=== PATIENT | female | born 1945 | race Caucasian/White ===

== ENCOUNTER 2017-10-26 15:09 | Inpatient (IN) | payer MEDICARE ==
[2017-10-26] MEDS ORDERED: Ondansetron HCl/PF 4 MG/2 ML Vial SLOW IVP PRN (15:32)
[2017-10-26] MEDS ORDERED: Bisacodyl 5 MG TAB PO PRN (15:32)
[2017-10-26] MEDS ORDERED: Acetaminophen 325 MG TAB PO PRN (15:32)
[2017-10-26 16:12] LABS: #Basophils 0.1 thou/uL (0.0-0.2); #Eosinphils 0.1 thou/uL (0.0-0.7); #Lymphocytes 1.7 thou/uL (1.20-3.40); #Monocytes 0.9 thou/uL (0.11-0.59); #Neutrophils 7.2 thou/uL (1.40-6.50); %Basophils 0.9 % (0.0-1.0); %Eosinophils 0.6 % (0.0-10.0); %Lymphocytes 17.2 % (21.0-51.0); %Monocytes 8.9 % (0.0-10.0); %Neutrophils 72.4 % (42.0-75.0); Hemoglobin 16.6 g/dL (12.0-16.0); Mean Corpuscular HGB CONC 34.1 g/dL (32.0-36.0); Mean Corpuscular Volume 91.1 fL (78.0-98.0); Mean Platelet Volume 8.7 fL (7.4-10.4); Platelet Count 352 thou/uL (130-400); RBC Distribution Width 13.6 % (11.5-14.5); Red Blood Cell (RBC) Count 5.34 mill/uL (4.20-5.40); White Blood Cell (WBC) Count 9.9 thou/uL (4.8-10.8)
[2017-10-26 16:18] LABS: ALT (SGPT) 38 U/L (8-55); AST (SGOT) 31 U/L (5-34); Alkaline Phosphatase 107 U/L (40-150); Anion Gap 16 mmol/L (10-20); BUN (Urea Nitrogen) 17 mg/dL (9.8-20.1); Bilirubin, Total 1.8 mg/dL (0.2-1.2); Calc. Creatinine Clearance 0 mL/min (70-130); Calcium 11.6 mg/dL (7.8-10.44); Carbon Dioxide 24 mmol/L (23-31); Chloride 102 mmol/L (98-107); Estimated GFR-MDRD 38; Globulin 3.8 g/dL (2.4-3.5); Glucose 114 mg/dL (83-110); Potassium 3.5 mmol/L (3.5-5.1); Protein, Total 7.8 g/dL (6.0-8.3); Sodium 138 mmol/L (136-145)
[2017-10-26 16:53] VITALS: BMI 35.5
[2017-10-26] MEDS: Rivaroxaban 10 MG TAB PO SCH (19:55)
--- NOTE | 2017-10-27 07:42 | PDOC.CTH ---
Cardiology Progress Note - Subjective Resting comfortably - Objective Vital Signs Temp Pulse Resp BP Pulse Ox 10/27/17 04:00 97.8 F 78 18 142/79 H 93 L 10/27/17 00:00 100 18 177/78 H 10/26/17 20:00 98.1 F 88 18 161/91 H 95 Weight 210 lb 10/26/17 10/27/17 10/28/17 06:59 06:59 06:59 Intake Total 480 Output Total 400 Balance 80 - Physical Examination General/Neuro: alert & oriented x3, NAD Neck: carotid US brisk, no JVD present Lungs: unlabored respirations Heart: other: (IRR) Abdomen: no HSM, NT/ND, soft Extremities: + femoral B - Telemetry Telemetry Rhythm: afib - Labs Result Diagrams: 10/26/17 15:45 10/26/17 15:45 - Assessment/Plan afib with RVR Pt with previous chronic afib strategy is to rate control given she has been in afib for over 2 yrs add po CCB decrease IV ccb at noon today
[2017-10-27] MEDS: Potassium Chloride 20 MEQ TAB PO SCH ×2 (08:03→16:42)
[2017-10-27] MEDS: cloNIDine 0.1 MG TAB PO SCH (08:03)
[2017-10-27] MEDS: Digoxin 0.125 MG TAB PO SCH (08:03)
[2017-10-27] MEDS: Senokot S 8.6-50 MG TAB PO SCH (08:04)
[2017-10-27] MEDS: Multivit, Therapeutic 1 TAB PO SCH (08:04)
[2017-10-27] MEDS: Furosemide 40 MG TAB PO SCH (08:04)
[2017-10-27] MEDS: Meloxicam 7.5 MG TAB PO SCH (08:04)
[2017-10-27] MEDS: Thyroid 30 MG TAB PO SCH (08:11)
[2017-10-27] MEDS ORDERED: Diltiazem HCl 125 MG, Admixture Fee 1 EACH in Sodium Chloride 0.9% 100 ML IVPB SCH (12:00)
[2017-10-27] MEDS: Rivaroxaban 10 MG TAB PO SCH (20:49)
[2017-10-28] MEDS: Digoxin 0.125 MG TAB PO SCH (08:06)
[2017-10-28] MEDS: cloNIDine 0.1 MG TAB PO SCH (08:06)
[2017-10-28] MEDS: Furosemide 40 MG TAB PO SCH (08:06)
[2017-10-28] MEDS: Potassium Chloride 20 MEQ TAB PO SCH ×2 (08:06→16:44)
[2017-10-28] MEDS: Multivit, Therapeutic 1 TAB PO SCH (08:07)
[2017-10-28] MEDS: Senokot S 8.6-50 MG TAB PO SCH (08:07)
[2017-10-28] MEDS: Meloxicam 7.5 MG TAB PO SCH (08:07)
[2017-10-28] MEDS: Thyroid 30 MG TAB PO SCH (08:07)
[2017-10-28] MEDS: Rivaroxaban 10 MG TAB PO SCH (20:58)
[2017-10-29 06:03] LABS: Digoxin 0.79 ng/mL (0.8-2.0)
[2017-10-29 06:08] LABS: Anion Gap 14 mmol/L (10-20); BUN (Urea Nitrogen) 18 mg/dL (9.8-20.1); Calc. Creatinine Clearance 86 mL/min (70-130); Calcium 9.9 mg/dL (7.8-10.44); Carbon Dioxide 27 mmol/L (23-31); Chloride 102 mmol/L (98-107); Estimated GFR-MDRD 65; Glucose 93 mg/dL (83-110); Potassium 3.9 mmol/L (3.5-5.1); Sodium 139 mmol/L (136-145)
[2017-10-29 07:44] VITALS: BP 142/88; TEMP 98.8
[2017-10-29] MEDS: Potassium Chloride 20 MEQ TAB PO SCH (07:44)
[2017-10-29] MEDS: Furosemide 40 MG TAB PO SCH (07:44)
[2017-10-29] MEDS: Digoxin 0.125 MG TAB PO SCH (07:44)
[2017-10-29] MEDS: Multivit, Therapeutic 1 TAB PO SCH (07:45)
[2017-10-29] MEDS: Senokot S 8.6-50 MG TAB PO SCH (07:45)
[2017-10-29] MEDS: Thyroid 30 MG TAB PO SCH (07:45)
[2017-10-29] MEDS: cloNIDine 0.1 MG TAB PO SCH (07:45)
--- NOTE | 2017-10-29 14:24 | DIS ---
DATE OF ADMISSION: 10/26/2017 DATE OF DISCHARGE: 10/29/2017 DISCHARGE DIAGNOSIS: Atrial fibrillation. HOSPITAL COURSE: Ms. Durand was admitted from the outpatient clinic due to atrial fibrillation with RVR. There were attempts to control her rate she was placed on IV Cardizem. She was placed on low dose beta al therapy with increase in her calcium channel blockade. On day of discharge, o n 10/29/2017, her rate was felt to be controlled. DISCHARGE MEDICATIONS: Lasix 40 daily, digoxin 0.25 q.a.m., Molino Thyroid as prescribed, Xarelto 20 daily, multivitamin, Cardizem 240 daily, diltiazem 360 daily, and metoprolol 25 mg daily.
== END 2017-10-29 10:53 | disposition home or self-care (01) | DRG 310 ==
LOC: 2NO 15:09
PROVIDERS: ADMIT Internal Medicine Cardiovascular Disease; ATTEND Internal Medicine Cardiovascular Disease
DX: I48.2 Chronic atrial fibrillation (principal); I10 Essential (primary) hypertension; E78.5 Hyperlipidemia, unspecified; Z88.5 Allergy status to narcotic agent; Z88.0 Allergy status to penicillin; Z79.899 Other long term (current) drug therapy
CPT/HCPCS: 36415; 80048; 80053; 80162; 84443; 85025; A4216; J7050

== ENCOUNTER 2018-01-27 06:52 | Outpatient (CLI) | payer MEDICARE ==
--- NOTE | 2018-01-27 08:32 | ULT ---
RIGHT UPPER QUADRANT GALLBLADDER ULTRASOUND: HISTORY: Abdominal pain and weight loss. COMPARISON: None. TECHNIQUE: Utilizing a multihertz transducer, sonographic imaging of the right upper quadrant is performed in th e longitudinal and transverse plane. FINDINGS: Pancreas is obscured by bowel gas. Gallbladder is surgically absent. Main portable vein is patent. Appropriate directional flow. Hepatic parenchyma has a normal echotexture. No hepatic masses or intrahepatic biliary dilatation. The contour of the hepatic margin is maintained. Right hepatic lobe measures 14.10 cm. Common bile duct diameter is 0.7 cm. The right kidney has a normal cortical echotexture. No hydronephrosis. The right kidney measures 9. 3 x 5.5 x 5.4 cm. There is an anechoic focus in the right renal cortex, mid pole measuring approxima tely 1 cm. Small cyst is favored. On the transverse images, the cyst appears to be exophytic. IMPRESSION: Unremarkable right upper quadrant ultrasound. POS: [facility]
== END 2018-01-27 06:53 | disposition home or self-care (01) ==
LOC: SCSULT 06:52
PROVIDERS: ATTEND Family Medicine
DX: R10.9 Unspecified abdominal pain (principal)
CPT/HCPCS: 76705

== ENCOUNTER 2018-03-17 09:43 | Outpatient (CLI) | payer MEDICARE ==
[~2018-03-17 09:43] MED LIST: Gadobenate Dimeglumine 529 MG/1 ML (20ML VIAL) ONE
--- NOTE | 2018-03-17 12:14 | MRI ---
MRI BRAIN WITH AND WITHOUT CONTRAST: HISTORY: 72-year-old female with G25.2 coarse tremors. TECHNIQUE: Multiple sequences obtained in axial, sagittal, and coronal planes; pre and post IV injection of gado linium-based contrast agent: 17 mL MultiHance. FINDINGS: The ventricles are normal in size and configuration. There is no restricted diffusion, abnormal intr aaxial enhancement, mass, midline shift or any other mass effect, recent intraaxial hemorrhage, or ex traaxial fluid collection. There is a mild-moderate degree of T2-hyperintensities in the periventricu lar cerebral white matter consistent with chronic ischemic white matter changes due to microvascular atherosclerosis. IMPRESSION: 1. Mild-moderate chronic ischemic white matter changes. 2. Otherwise negative. jn[] POS: MR
== END 2018-03-17 09:44 | disposition home or self-care (01) ==
LOC: SCSMRI 09:43
PROVIDERS: ATTEND Family Medicine
DX: G25.2 Other specified forms of tremor (principal); G93.89 Other specified disorders of brain
CPT/HCPCS: 70553; 82565

== ENCOUNTER 2018-05-14 08:58 | Emergency (ER) | payer MEDICARE ==
[2018-05-14 09:26] LABS: #Basophils 0.1 thou/uL (0.0-0.2); #Lymphocytes 3.1 thou/uL (1.20-3.40); #Monocytes 0.7 thou/uL (0.11-0.59); #Neutrophils 6.7 thou/uL (1.40-6.50); %Eosinophils 0.5 % (0.0-10.0); %Lymphocytes 28.8 % (21.0-51.0); %Monocytes 6.3 % (0.0-10.0); %Neutrophils 63.5 % (42.0-75.0); Hemoglobin 13.3 g/dL (12.0-16.0); Mean Corpuscular HGB CONC 33.7 g/dL (32.0-36.0); Mean Corpuscular Hemoglobin 30.3 pg (27.0-31.0); Mean Corpuscular Volume 89.9 fL (78.0-98.0); Mean Platelet Volume 7.7 fL (7.4-10.4); Platelet Count 271 thou/uL (130-400); Red Blood Cell (RBC) Count 4.37 mill/uL (4.20-5.40); White Blood Cell (WBC) Count 10.6 thou/uL (4.8-10.8)
[2018-05-14] MEDS ORDERED: Diltiazem 125 MG/25 ML ONE (09:34)
[2018-05-14 09:42] LABS: ALT (SGPT) 15 U/L (8-55); AST (SGOT) 19 U/L (5-34); Alkaline Phosphatase 81 U/L (40-150); Anion Gap 18 mmol/L (10-20); BUN (Urea Nitrogen) 36 mg/dL (9.8-20.1); Bilirubin, Total 1.2 mg/dL (0.2-1.2); Calc. Creatinine Clearance 0 mL/min (70-130); Calcium 10.9 mg/dL (7.8-10.44); Carbon Dioxide 23 mmol/L (23-31); Chloride 107 mmol/L (98-107); Estimated GFR-MDRD 70; Globulin 2.9 g/dL (2.4-3.5); Glucose 105 mg/dL (83-110); Potassium 3.6 mmol/L (3.5-5.1); Protein, Total 6.9 g/dL (6.0-8.3); Sodium 144 mmol/L (136-145)
[2018-05-14 10:17] LABS: Bilirubin Negative (Negative); Blood, Urine Negative (Negative); Clarity Clear (Clear); Glucose, Urine (Dipstick) Negative (Negative); Leukocyte Negative (Negative); Nitrite Negative (Negative); Protein, Urine (Dipstick) Negative (Neg-Trace); Specific Gravity, Urine 1.015 (1.005-1.030); Urobilinogen 0.2 mg/dL (0.2-1.0)
[2018-05-14] MEDS ORDERED: Aspirin Chewable 81 MG TAB ONE (10:17)
--- NOTE | 2018-05-14 10:48 | RAD ---
PORTABLE CHEST: DATE: 05/14/2018. PROVIDED CLINICAL HISTORY: Shortness of breath. FINDINGS: Cardiac silhouette appears enlarged, which may be at least partially on the basis of portable techniq ue. No focal consolidation, pleural fluid, or pneumothorax apparent. IMPRESSION: No evidence for an acute cardiopulmonary process. POS: [facility]
[2018-05-14 12:56] LABS: Troponin I 0.027 ng/mL (< 0.028)
== END 2018-05-14 13:21 | disposition home or self-care (01) ==
LOC: SCSER 08:58
DX: I48.91 Unspecified atrial fibrillation (principal); I10 Essential (primary) hypertension; Z79.899 Other long term (current) drug therapy
CPT/HCPCS: 71045; 80053; 80162; 81003; 83605; 83880; 84443; 84484; 85025; 93005; 94760; 96361; 96374

== ENCOUNTER 2018-08-08 12:51 | Observation (INO) | payer MEDICARE ==
[2018-08-08] MEDS ORDERED: Aspirin Chewable 81 MG TAB ONE (13:16)
[2018-08-08 13:32] LABS: #Basophils 0.1 thou/uL (0.0-0.2); #Eosinphils 0.1 thou/uL (0.0-0.7); #Lymphocytes 2.6 thou/uL (1.20-3.40); #Neutrophils 6.7 thou/uL (1.40-6.50); %Basophils 1.1 % (0.0-1.0); %Eosinophils 1.4 % (0.0-10.0); %Lymphocytes 24.5 % (21.0-51.0); %Monocytes 9.5 % (0.0-10.0); %Neutrophils 63.6 % (42.0-75.0); Hemoglobin 16.1 g/dL (12.0-16.0); Mean Corpuscular HGB CONC 33.4 g/dL (32.0-36.0); Mean Corpuscular Hemoglobin 29.4 pg (27.0-31.0); Mean Corpuscular Volume 88.1 fL (78.0-98.0); Mean Platelet Volume 8.4 fL (7.4-10.4); Platelet Count 340 thou/uL (130-400); RBC Distribution Width 13.1 % (11.5-14.5); Red Blood Cell (RBC) Count 5.49 mill/uL (4.20-5.40); White Blood Cell (WBC) Count 10.6 thou/uL (4.8-10.8)
[2018-08-08 13:45] LABS: ALT (SGPT) 18 U/L (8-55); AST (SGOT) 25 U/L (5-34); Albumin 4.2 g/dL (3.4-4.8); Alkaline Phosphatase 108 U/L (40-150); Anion Gap 21 mmol/L (10-20); BUN (Urea Nitrogen) 19 mg/dL (9.8-20.1); Bilirubin, Total 2.1 mg/dL (0.2-1.2); Calc. Creatinine Clearance 0 mL/min (70-130); Calcium 10.8 mg/dL (7.8-10.44); Carbon Dioxide 20 mmol/L (23-31); Chloride 101 mmol/L (98-107); Digoxin 0.26 ng/mL (0.8-2.0); Estimated GFR-MDRD 50; Globulin 3.9 g/dL (2.4-3.5); Glucose 97 mg/dL (83-110); Potassium 3.1 mmol/L (3.5-5.1); Protein, Total 8.1 g/dL (6.0-8.3); Sodium 139 mmol/L (136-145)
--- NOTE | 2018-08-08 13:47 | RAD ---
PORTABLE CHEST: HISTORY: Shortness of breath. Atrial fibrillation. FINDINGS: Lung cortez are clear. No evidence of vascular congestion. Heart size is upper normal and stable fr om prior exam. No effusion. IMPRESSION: No acute process. POS: [facility]
[2018-08-08] MEDS ORDERED: Diltiazem HCl 125 MG, Admixture Fee 1 EACH in Sodium Chloride 0.9% 100 ML IVPB SCH (14:00)
[2018-08-08 14:08] LABS: CKMB 1.1 ng/mL (0-6.6)
[2018-08-08 16:06] VITALS: BMI 28.8
[2018-08-08] MEDS ORDERED: Sodium Chloride 0.9% 1,000 ML IV SCH (16:30)
[2018-08-08 17:03] LABS: Troponin I 0.033 ng/mL (< 0.028)
[2018-08-08] MEDS ORDERED: Bisacodyl 5 MG TAB PO PRN (17:59)
[2018-08-08] MEDS ORDERED: Benzonatate 100 MG CAP PO PRN (17:59)
[2018-08-08] MEDS ORDERED: Acetaminophen 325 MG TAB PO PRN (17:59)
[2018-08-08] MEDS ORDERED: Nitroglycerin 0.4 MG TAB (25 Tab Bottle) SL PRN (17:59)
[2018-08-08] MEDS ORDERED: cloNIDine 0.1 MG TAB PO PRN (17:59)
[2018-08-08] MEDS ORDERED: hydrALAZINE 20 MG/ML VIAL SLOW IVP PRN (17:59)
[2018-08-08] MEDS ORDERED: Ondansetron PF 4 MG/2 ML Vial IVP PRN ×2 (17:59)
[2018-08-08] MEDS ORDERED: Senokot S 8.6-50 MG TAB PO PRN (17:59)
[2018-08-08] MEDS ORDERED: Calcium Carbonate 500 MG ChewTAB PO PRN (17:59)
[2018-08-08] MEDS ORDERED: Enoxaparin Sodium 80 MG/0.8 ML SYRINGE SC SCH (18:00)
[2018-08-08] MEDS ORDERED: Diltiazem 125 MG in Sodium Chloride 0.9% 100 ML IVPB SCH (18:00)
[2018-08-08] MEDS ORDERED: Potassium Chloride 20 MEQ TAB PO SCH (18:45)
--- NOTE | 2018-08-08 19:25 | HP ---
PRIMARY CARE PHYSICIAN: Dr. Gomez. PRIMARY BRIEFCASE SEWER: Dr. Lewis. CHIEF COMPLAINT: Shortness of breath and dizziness. HISTORY OF PRESENTING ILLNESS: Ms. Durand is a very pleasant 72-year-old female with past medical history of chronic atrial fibrillation, on chronic anticoagulation as well as history of hypertension and dyslipidemia, who presented to the emergency room with above-mentioned complaint. History is mainly obtained by the patient herself and supplemented by her son present at the bedside. Ms. Durand underwent a cataract surgery and she has been off her Xarelto for the last 2-1/2 weeks. For the last about 5 to 10 days, she has been experiencing dizziness, which has been getting worse. She had a cold, for which she was on [id number] cold medications, but when she started to get dizzy: She stopped taking those, but persistently stayed dizzy. The dizziness worsened to the point where she has fallen up to 5 to 6 times in the last 2 weeks. She is also experiencing the sensation that she is leaning toward her left side. She denies any fever, headache, nausea, vomiting, or abdominal pain. She denies any chest pain or chest discomfort. Since yesterday, she also started to feel more and more shortness of breath and this morning when she was getting in the car to go to her primary care physician: She was so short of breath that she could not finish the sentences and she was so dizzy that she could not walk and had to be put in the car in a wheelchair. Her physician told her to come to the emergency room. In the ER upon presentation, she was found to have a heart rate of 132, but her oxygen saturations were adequate at 97% on room air. EKG confirmed atrial fibrillation with RVR. She was given Cardizem bolus 10 mg and was started on Cardizem drip. She also received aspirin and saline in the ER. She is now being admitted to observation unit on telemetry for atrial fibrillation with RVR. The patient has history of atrial fibrillation and currently is taking medications including digoxin, beta al, and calcium channel blockers along with Xarelto. Xarelto has been on hold for the last 2-1/2 weeks because of recent cataract surgery and also because of upcoming cataract surgery at the other eye a week from now. PAST MEDICAL HISTORY: 1. Hypertension. 2. Dyslipidemia. 3. Atrial fibrillation, status post cardioversion at least once, which was unsuccessful according to the son. 4. Possible GERD. 5. Possible anxiety disorder. 6. Questionable obstructive sleep apnea. PAST SURGICAL HISTORY: 1. Tonsillectomy. 2. Carpal tunnel x2. 3. Lipoma removal. 4. Bilateral tubal ligation. 5. Cholecystectomy. ALLERGIES: PENICILLIN AND CODEINE. SOCIAL HISTORY: She is a and lives at home with her family. No history of drug, tobacco, or alcohol abuse. FAMILY HISTORY: Significant for diabetes. Mother had Alzheimer's. CODE STATUS: Full code discussed with the patient. REVIEW OF SYSTEMS: A 14-point review of system is done. It is negative except for those mentioned in the history and physical. LABORATORY STUDIES: CBC shows hemoglobin 16.1. Serum chemistry showed potassium of 3.1, bicarb 20, anion gap of 21, calcium 10.8, total bilirubin 2.1. BNP 154. TSH normal. Troponin is 0.046 with normal CK-MB with repeat troponin of 0.033. Chest x-ray by my review shows no evidence of pulmonary edema or congestion or infiltrate. A 12-lead EKG by my review shows some PVCs, atrial fibrillation with heart rate of 162. PHYSICAL EXAMINATION: VITAL SIGNS: Most recent vital signs; temperature 97.3, pulse of 88, respirations 18, saturating 97% on room air, and blood pressure 136/85. GENERAL: No acute distress. Awake, alert, and oriented x3. Very pleasant. HEENT: Mucous membrane is moist and pink. No oropharyngeal exudate or erythema. Head is normocephalic and atraumatic. Pupils are equal and reactive to light and accommodation. Extraocular movement intact. NECK: Supple without any lymphadenopathy, JVD, or bruit. CHEST: Clear to auscultation without any wheezing, rales, or rhonchi. Rate rhythm is irregularly irregular rhythm without any significant murmurs. ABDOMEN: Soft, nontender, and nondistended. Positive bowel sounds. EXTREMITIES: Free of any cyanosis, clubbing, or edema. NEUROLOGIC: Nonfocal. She does not have any focal muscle weakness or cranial nerve deficits on my examination. No dysdiadochokinesia noticed. SKIN: Free of any rashes or bruises. Feels warm and dry to touch. PSYCHIATRIC: Normal affect. VASCULAR: +2 pedal pulses felt bilaterally. IMPRESSION AND PLAN: 1. Recurrent atrial fibrillation with rapid ventricular rate. The patient has had history of atrial fibrillation with failed cardioversion in the past. At this time, we will provide her with rate control and continue the anticoagulation. Unfortunately, the patient has been off Xarelto for the last 2-1/2 weeks. We will give her one dose of Lovenox and keep her n.p.o. after midnight with morning Cardiology consult. If she needs a cardioversion: She would most likely need a transesophageal echocardiogram prior to that to rule out cardiac thrombus as she has been off anticoagulation for a while. For this reason, only one dose of Lovenox will be given if she needs invasive procedures like ETHAN. We will continue the Cardizem drip for now, but restart her oral beta al and digoxin in hopes to titrate the Cardizem down. Cardiology consultation will be requested in the morning as well. She is currently hemodynamically stable and her heart rate is under much better control. 2. Multiple falls and dizziness. The patient will need to have an embolic stroke ruled out. We will obtain an MRI of the brain. She is at high risk with chronic persistent atrial fibrillation and she is off anticoagulation. 3. Elevated troponin, most likely type 2 myocardial infarction from demand ischemia from atrial fibrillation. Continue to trend serial cardiac enzymes. She has received 2 doses of aspirin in the emergency room. 4. Hypokalemia. We will replace and recheck in the morning. 5. Hypertension, currently well controlled. We will reconcile her home medications and restart her Toprol. 6. Hypothyroidism. Restart her Adrian Thyroid 30 mg daily. 7. Code status. Full code discussed with the patient. 8. Deep venous thrombosis and gastrointestinal prophylaxis with SCDs. DISPOSITION: Ms. Durand is currently being admitted under observation status for recurrent atrial fibrillation with RVR. Estimated length of stay at this time is less than 2 midnights. Further management will depend upon her clinical course. Job ID: [id number]
[2018-08-08 19:45] LABS: Troponin I 0.033 ng/mL (< 0.028)
[2018-08-09 05:25] LABS: #Basophils 0.1 thou/uL (0.0-0.2); #Eosinphils 0.1 thou/uL (0.0-0.7); #Lymphocytes 1.7 thou/uL (1.20-3.40); #Monocytes 0.6 thou/uL (0.11-0.59); #Neutrophils 3.7 thou/uL (1.40-6.50); %Basophils 1.2 % (0.0-1.0); %Eosinophils 1.7 % (0.0-10.0); %Lymphocytes 27.7 % (21.0-51.0); %Monocytes 9.6 % (0.0-10.0); %Neutrophils 59.8 % (42.0-75.0); Hemoglobin 13.3 g/dL (12.0-16.0); Mean Corpuscular HGB CONC 31.8 g/dL (32.0-36.0); Mean Corpuscular Hemoglobin 28.5 pg (27.0-31.0); Mean Corpuscular Volume 89.7 fL (78.0-98.0); Mean Platelet Volume 8.2 fL (7.4-10.4); Platelet Count 284 thou/uL (130-400); RBC Distribution Width 13.1 % (11.5-14.5); Red Blood Cell (RBC) Count 4.65 mill/uL (4.20-5.40); White Blood Cell (WBC) Count 6.1 thou/uL (4.8-10.8)
[2018-08-09 05:45] LABS: Anion Gap 14 mmol/L (10-20); BUN (Urea Nitrogen) 19 mg/dL (9.8-20.1); Calc. Creatinine Clearance 76 mL/min (70-130); Calcium 9.7 mg/dL (7.8-10.44); Carbon Dioxide 25 mmol/L (23-31); Chloride 104 mmol/L (98-107); Estimated GFR-MDRD 72; Glucose 80 mg/dL (83-110); Potassium 3.9 mmol/L (3.5-5.1); Sodium 139 mmol/L (136-145)
[2018-08-09] MEDS ORDERED: Digoxin 0.125 MG TAB PO SCH (09:00)
[2018-08-09] MEDS ORDERED: Thyroid 30 MG TAB PO SCH (09:00)
[2018-08-09] MEDS ORDERED: Enoxaparin Sodium 30 MG/0.3 ML SYRINGE SC SCH (11:15)
--- NOTE | 2018-08-09 12:57 | CON ---
DATE OF CONSULTATION: 08/09/2018 ADMITTING PHYSICIAN: [facility]. CONSULTING PHYSICIAN: Kunal Lewis MD. REASON FOR CONSULTATION: Dizziness and AFib with RVR. HISTORY OF PRESENT ILLNESS: Ms. Durand is a pleasant 72-year-old female with a past medical history of chronic AFib, hypertension, and hyperlipidemia, who presented to the emergency room with acute dizziness for the last 3 to 4 days. She was found to be in AFib with RVR. She has a long history of AFib. In the last few months, her rate control has been marginal. She does not check her blood pressure or pulse rate at home on a regular basis. We do have a couple of documented phone calls from the patient or her son, who stated that her heart rate intermittently races at times. She had an ER visit back in April and had AFib with RVR. At that time, we discussed adjusting medications, but they thought she was just dehydrated, which triggered the event. They mentioned that she had cataract surgery in the last week. She was asked to hold her Xarelto a few days before the surgery. Postoperatively, she developed acute dizziness. The son says she fell 5 times. She said that she has been very dizzy when she turns her head to the left. She finally decided to come to the emergency room and was found to be in AFib with a rate of 160. She was placed on a Cardizem drip and is now rate controlled. She did have shortness of breath at the time of admission, but now has no shortness of breath or chest pain. Her pulse rate has been in the 70s to 80s recently and her Cardizem drip has been discontinued. CURRENT MEDICATIONS: 1. Xarelto 20 mg one p.o. daily. 2. Diltiazem extended release 360 mg one daily. 3. Eagle Thyroid 30 mg one daily. 4. Lasix 40 mg one daily. 5. Stool softener daily. 6. Multivitamin daily. 7. Clonidine 0.1 mg once a day. 8. Digoxin 0.125 mg one daily. 9. Mobic 7.5 mg daily as needed. 10. Metoprolol tartrate 25 mg p.o. b.i.d. 11. Vitamin D3 1000 units once daily. PAST MEDICAL HISTORY: Hypertension, hyperlipidemia, chronic AFib, GERD, anxiety disorder, and possible sleep apnea. PAST SURGICAL HISTORY: Tonsillectomy, carpal tunnel surgeries x2, lipoma removal, bilateral tubal ligation with cholecystectomy. ALLERGIES: PENICILLIN AND CODEINE. SOCIAL HISTORY: The patient is a and lives at home. Her son was with her, and she has no previous history of tobacco or alcohol abuse. FAMILY HISTORY: Noncontributory. CODE STATUS: Full code status. REVIEW OF SYSTEMS: A 10-point review of systems discussed with the patient, it is negative except for HPI and past medical history mentioned above. PHYSICAL EXAMINATION: GENERAL: This is a pleasant elderly female, who is in no acute distress. She is lying in bed, resting comfortably, conversing easily. NEUROLOGIC: She is alert, awake, and oriented x3. VITAL SIGNS: Show temperature is afebrile, respiratory rate is 16, pulse in the 60s, blood pressure is 131/66. Is and Os are +780 at this time, but not fully recorded. HEENT: Head is atraumatic and normocephalic. Mucous membranes are moist. NECK: Supple. No JVD is noted. CHEST: Clear to auscultation bilaterally. CARDIOVASCULAR: Irregularly irregular and rhythm with no murmurs, rubs, or gallops. ABDOMEN: Soft, nontender to palpation, and nondistended. EXTREMITIES: Showed no clubbing, cyanosis, or edema. SKIN: Warm and dry. PSYCHIATRIC: Mood and affect are appropriate. MUSCULOSKELETAL: as the patient is lying in bed and is at a fall risk. LABORATORY DATA: CBC is within normal limits. BMP is normal. Troponins were minimally elevated at 0.046, 0.033 and 0.033. BNP was minimally elevated at 154.8. Digoxin level is 0.26. RADIOLOGIC STUDIES: Chest x-ray showed mild pulmonary vascular congestion, but was otherwise stable. IMPRESSION: 1. Acute dizziness. 2. Atrial fibrillation with rapid ventricular response. 3. Hypertension. 4. Hyperlipidemia. PLAN: 1. At this time, the patient is stable and her rate control has improved after additional Cardizem drip that was given. She has no complaints at this time. She denies any shortness of breath. She does appear to be mildly volume overloaded, which is most likely secondary to her RVR. We discussed the plan of care at length. I think for some time, she probably has had intermittent RVR and has been unaware of it. Given that she has had 2 ER visits in the last 3 months, I have suggested increasing her medication. We will double her metoprolol. If this does not work, we have the option of doubling her digoxin to 250 mcg daily, but I did discuss the risk of that with advanced age. If she still breaks through with intermittent RVR and she may eventually need an with permanent pacemaker placement. There is no evidence of bradycardia at this time, but we will continue to monitor for that. We will continue her inpatient status and discharge her at the earliest tomorrow. She will need to go home with a 30-day event monitor. The patient and her son understands and agreed to the plan of care. Job ID: [id number]
--- NOTE | 2018-08-09 13:02 | MRI ---
Exam: Brain MRI with and without contrast HISTORY: Evaluate for CVA versus stroke versus dizziness COMPARISON: 03/17/2018 FINDINGS: Gradient echo sequence: No hemorrhage Calvarium: Appropriate T1 marrow signal intensity Midline brain parenchyma: Unremarkable Cerebrum:No parenchymal mass, mass effect or midline shift. Brain volume, age-appropriate. Cortical g ray-white matter differentiation preserved. T2 and FLAIR white matter hyperintensities, likely due to chronic small vessel ischemic change. No significant interval change. Ventricles: No evidence of hydrocephalus. Sinuses and mastoid air cells: Adequate aeration Diffusion: Central arterial flow is maintained. Absent restricted diffusion. Postcontrast images: No pathologic enhancement of the brain parenchyma. IMPRESSION: 1. Absent restricted diffusion. No acute infarct 2. Age-appropriate atrophy. 3. Stable chronic small vessel ischemic changes of the white matter.
--- NOTE | 2018-08-09 13:54 | PDOC.PN ---
- Subjective Encounter Start Date: 08/09/18 Encounter Start Time: 13:52 Subjective: feels well. no more SOB.mild dizziness when she stands up -: no CP - Objective Resuscitation Status - Order Detail: 08/08/18 18:30 Resuscitation Status Routine Resuscitation Status: FULL: Full Resuscitation Discussed with: discussed with patient MAR Reviewed: Yes Vital Signs & Weight: Vital Signs (12 hours) Temp Pulse Resp BP Pulse Ox 08/09/18 10:41 97.9 F 76 16 179/81 H 92 L 08/09/18 09:31 62 08/09/18 07:10 97.9 F 62 16 131/66 96 08/09/18 04:00 97.4 F L 67 20 122/71 97 Weight Weight 168 lb 1 oz I&O: 08/08/18 08/09/18 08/10/18 06:59 06:59 06:59 Intake Total 838 Balance 838 Result Diagrams: 08/09/18 04:45 08/09/18 04:45 Radiology Reviewed by me: Yes (MRI -no acute infract) Phys Exam - Physical Examination Constitutional: NAD HEENT: PERRLA, moist MMs, sclera anicteric, oral pharynx no lesions Neck: no nodes, no JVD, supple, full ROM Respiratory: no wheezing, no rales, no rhonchi, clear to auscultation bilateral Cardiovascular: RRR, no significant murmur Gastrointestinal: soft, non-tender, no distention, positive bowel sounds Musculoskeletal: no edema, pulses present Neurological: non-focal, normal sensation, moves all 4 limbs Psychiatric: normal affect, A&O x 3 Skin: no rash Dx/Plan (1) Chronic atrial fibrillation with rapid ventricular response Code(s): I48.2 - CHRONIC ATRIAL FIBRILLATION Status: Acute Comment: rate controlled. DC Cardizem drip and restart all PO meds including Digoxin,BB and CCB (2) Chronic anticoagulation Code(s): Z79.01 - SHELTER (CURRENT) USE OF ANTICOAGULANTS Status: Acute (3) Dyslipidemia Code(s): E78.5 - HYPERLIPIDEMIA, UNSPECIFIED Status: Acute (4) Hypertension Code(s): I10 - ESSENTIAL (PRIMARY) HYPERTENSION Status: Acute - Plan DVT proph w/SCDs MRI negative for Stroke -: restart Xarelto.discussed w Cardiology -: Postpone Cataract Sx -: ECHO pending -: final DC recs per cardiology * . Review of Systems - Review of Systems Constitutional: negative: fever, chills, sweats, weakness, malaise, other Respiratory: negative: Cough, Dry, Shortness of Breath, Hemoptysis, SOB with Excertion, Pleuritic Pain, Sputum, Wheezing Cardiovascular: negative: chest pain, palpitations, orthopnea, paroxysmal nocturnal dyspnea, edema, light headedness, other Gastrointestinal: negative: Nausea, Vomiting, Abdominal Pain, Diarrhea, Constipation, Melena, Hematochezia, Other Genitourinary: negative: Dysuria, Frequency, Incontinence, Hematuria, Retention , Other Skin: negative: Rash, Lesions, [place], Bruising, Other Neurological: negative: Weakness, Numbness, Incoordination, Change in Speech, Confusion, Seizures, Other - Medications/Allergies Allergies/Adverse Reactions: Allergies Allergy/AdvReac Type Severity Reaction Status Date / Time codeine Allergy Verified 04/24/13 17:41 Penicillins Allergy Verified 04/24/13 17:41 Medications: Current Medications Acetaminophen (Tylenol) 650 mg PO Q4H PRN PRN Reason: Headache/Fever/Mild Pain (1-3) Last Admin: 08/08/18 18:11 Dose: 650 mg Benzonatate (Tessalon) 100 mg PO Q6H PRN PRN Reason: Cough Bisacodyl (Dulcolax) 10 mg PO DAILYPRN PRN PRN Reason: Constipation Calcium Carbonate (Tums) 1,000 mg PO Q4H PRN PRN Reason: Heartburn or Indigestion Clonidine (Catapres) 0.1 mg PO Q4H PRN PRN Reason: SBP > _160___ Digoxin (Lanoxin) 0.125 mg PO DAILY [facility] Last Admin: 08/09/18 09:31 Dose: 0.125 mg Diltiazem HCl (Cardizem Cd) 360 mg PO DAILY [facility] Last Admin: 08/09/18 09:31 Dose: 360 mg Enoxaparin Sodium (Lovenox) 40 mg SC 0900 [facility] Hydralazine HCl (Apresoline) 10 mg SLOW IVP Q4H PRN PRN Reason: SBP > 180 and HR < 70 Metoprolol Succinate (Toprol Xl) 25 mg PO BID [facility] Nitroglycerin (Nitrostat) 0.4 mg SL Q5MIN PRN PRN Reason: Chest Pain Non-Formulary Medication (Rivaroxaban [Xarelto]) 20 mg PO QPM [facility] Ondansetron HCl (Zofran) 4 mg IVP Q6H PRN PRN Reason: Nausea/Vomiting Ondansetron HCl (Zofran) 4 mg IVP Q6H PRN PRN Reason: Nausea/Vomiting Senna/Docusate Sodium (Senokot S) 2 tab PO BID PRN PRN Reason: Constipation Thyroid ([place] Thyroid) 30 mg PO DAILY [facility] Last Admin: 08/09/18 09:31 Dose: 30 mg
[2018-08-09 16:06] VITALS: BP 128/81; TEMP 97.3
[2018-08-09] MEDS ORDERED: Rivaroxaban 10 MG TAB PO SCH (21:00)
--- NOTE | 2018-08-10 07:31 | CON ---
DATE OF CONSULTATION: REASON FOR CONSULTATION: Atrial fibrillation and dizziness. Please refer to [facility], full consultation. HISTORY OF PRESENT ILLNESS: Briefly, Ms. Durand recently presented with atrial fibrillation with RVR. She was placed on IV Cardizem. Her medications were adjusted. In the meantime, her IV Cardizem has been discontinued. She was placed on low-dose beta-al therapy in addition to Cardizem. OBJECTIVE: GENERAL: Patient is a pleasant female who is in no acute distress. The patient appears their stated age. VITAL SIGNS: Blood pressure 128/81, pulse 94, temperature 97.3. NEUROLOGIC: The patient is alert and oriented x3 with no focal neurologic deficits. HEENT: Sclerae without icterus. Mouth has moist mucous membranes with normal pallor. NECK: No JVD. Carotid upstroke brisk. No bruits bilaterally. LUNGS: Clear to auscultation with unlabored respirations. BACK: No scoliosis or kyphosis. CARDIAC: Regular rate and rhythm with normal S1 and S2. No S3 or S4 noted. No significant rubs, murmurs, thrills, or gallops noted throughout the precordium. PMI is not displaced. There is no parasternal heave. ABDOMEN: Soft, nontender, nondistended. No peritoneal signs present. No hepatosplenomegaly. No abnormal striae. EXTREMITIES: 2+ femoral and 2+ dorsalis pedis pulses. No cyanosis, clubbing, or edema. SKIN: No gross abnormalities. PERTINENT LABORATORY DATA: Hemoglobin 13.3. Creatinine 0.78. IMPRESSION: Atrial fibrillation with rapid ventricular response. RECOMMENDATIONS: There have been some compliance issues with Ms. Duradn. This may be part of the issue. At this point, I would recommend adding low-dose beta- al therapy to her Cardizem. She appears to be rate controlled. It would be okay from my standpoint to discharge home with close outpatient followup. Job ID: [id number]
[2018-08-10] MEDS ORDERED: Enoxaparin Sodium 40 MG/0.4 ML SYRINGE SC SCH (09:00)
--- NOTE | 2018-08-10 12:30 | DIS ---
DATE OF ADMISSION: 08/08/2018 DATE OF DISCHARGE: 08/09/2018 PRIMARY CARE PHYSICIAN: Dr. Gomez. CONDITION: At time of discharge, stable and improved. DISCHARGE DIAGNOSES: 1. Chronic atrial fibrillation with rapid ventricular rate. 2. Chronic anticoagulation. 3. Dyslipidemia. 4. Hypertension. DISCHARGE MEDICATIONS: Remain the same as admission medication. Please see admission history and physical dictated by myself on 08/08/2018. No changes were made. She was restarted on her Xarelto 20 mg at bedtime. The dose of the Toprol-XL has been changed to 25 mg p.o. b.i.d. and resume home medications as follows; 1. Xarelto 20 mg at bedtime. 2. [facility] Thyroid 30 mg daily. 3. Digoxin 125 mcg daily. 4. Diltiazem 360 mg daily. 5. Lasix 40 mg daily. IN-HOUSE CONSULTATION: Cardiology, Dr. Lewis. PROCEDURES DONE IN THE HOSPITAL: 1. MRI of the brain which did not show any acute infarction, but age appropriate atrophy. 2. Transthoracic echocardiogram which shows EF of 50% to 55% and moderate tricuspid and mitral regurgitation. HISTORY OF PRESENTING ILLNESS: Ms. Durand is a pleasant 72-year-old female with known history of atrial fibrillation who is on chronic anticoagulation, came to the hospital, complains of shortness of breath and dizziness of 1-2 days duration. She was recently taken off the Xarelto for about 2-1/2 weeks for cataract surgery that was already done. She was also supposed to get on the cataract surgery one week from presentation and was told to continue to hold the Xarelto. Upon presentation to the emergency room, she was found to be in atrial fibrillation with RVR, which was rate controlled with the help of bolus Cardizem with resolution of the patient's shortness of breath and dizziness. She was otherwise hemodynamically stable and was admitted to Hospitalist Service. Please see admission history dictated by myself for full details. HOSPITAL COURSE: Cardiology was consulted and the patient was given a dose of Lovenox, but Xarelto was continued to be held until Cardiology saw the patient. She was seen by Dr. Lewis and his team and her beta al was increased from 25 mg b.i.d. to 37.5 mg b.i.d. Otherwise, Dr. Lewis resumed the Xarelto as her next eye surgery will be postponed. Because of her dizziness symptoms, an MRI of the brain was checked to make sure she has not suffered an embolic stroke while she was off Xarelto. It was negative for the same. She has had wonderful rate control just by resuming her home medications and was cleared for discharge from Cardiology standpoint. She was seen and examined prior to discharge. Please see hospitalist progress note from the date of discharge for further details. FOLLOWUP: She will follow with primary care physician in 1 to [address] Lewis as recommended. Job ID: [id number]
--- NOTE | 2018-08-13 17:06 | EKG ---
Test Reason : Blood Pressure : / mmHG Vent. Rate : 162 BPM Atrial Rate : 174 BPM P-R Int : 000 ms QRS Dur : 074 ms QT Int : 276 ms P-R-T Axes : 000 008 182 degrees QTc Int : 453 ms Atrial fibrillation with rapid ventricular response with premature ventricular or aberrantly conducte d complexes Marked ST abnormality, possible lateral subendocardial injury Abnormal ECG Confirmed by CHRISTOFER FUNES DO ([id number]), image editor ARIANE MONTENEGRO ([id number]) on 08/13/2018 5:05:55 PM Referred By: Confirmed By:CHRISTOFER FUNES DO
== END 2018-08-09 16:15 | disposition home or self-care (01) ==
LOC: ERS 12:51 → 2SW 14:35
PROVIDERS: ADMIT Internal Medicine; ATTEND Internal Medicine
DX: I48.2 Chronic atrial fibrillation (principal); E78.5 Hyperlipidemia, unspecified; I10 Essential (primary) hypertension; R79.89 Other specified abnormal findings of blood chemistry; E03.9 Hypothyroidism, unspecified; Z79.01 Long term (current) use of anticoagulants; Z88.0 Allergy status to penicillin; Z88.5 Allergy status to narcotic agent
CPT/HCPCS: 70553; 71045; 80048; 80162; 82553; 83880; 84484 ×2; 85025; 93005; 93306; 96365; 96366 ×2; 96372 ×2; 96376; 97139; G0378 ×2; 36415; 80053; 84443; 96361; 96374; J1650; J3490

== ENCOUNTER 2020-05-06 08:37 | Outpatient (CLI) | payer MEDICARE | END 2020-05-06 08:38 | disposition home or self-care (01) | LOC: BICMAMMO 08:37 | PROVIDERS: ATTEND Internal Medicine | DX: Z12.31 Encounter for screening mammogram for malignant neoplasm of breast (principal) | CPT/HCPCS: 77063; 77067 ==